=== PATIENT | female | born 1935 | race Caucasian/White ===

== ENCOUNTER 2022-06-10 13:14 | Emergency (ER) | payer MEDICARE, OTHER, SELFPAY ==
[2022-06-10 13:27] VITALS: BP 139/63; PULSE 86; RESP 14; TEMP 36.9; O2SAT 96; BMI 22.5
--- NOTE | 2022-06-10 14:11 | ED_ITS ---
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 Patient notes that she received her COVID shot on WednesdayJune 05. She has had COVID vaccinations in the past without any difficulty but does have many allergies. She notes that 48 hours after receiving that vaccination or on June 07 she began to experience dizzy spells. These are very brief. She states that often times she will be getting up from a sitting or lying position and have a moment of Well 0 and have to sit back down. This passes quickly. She denies any difficulty breathing but this is associated with chest pressure. She denies any pain. Today she has now developed low back pain. She states that on WednesdayJune 08 she actually went to the clinic and was told that her pulse was off. She notes that it was between 82-84 and that is a little fast for her but that it was irregular. She has not had any heart issues or irregularity of her heart rate in the past. She was advised to come out here to the emergency room but states that a previous visit to us was concerning for her and thus she turned around and went home. Unfortunately, the episodes of feeling dizzy have continued up to 7 times in a day. She notes that sometimes they happen for no reason at all and sometimes they are associated with getting up suddenly. She denies any spinning of the room more feels like she is spinning. She notes no history of DVT no issues with urination or stooling. 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 She has no known exposures to COVID or other illnesses. She does overall feels weak. She has n ever passed out. Patient denies any recent falls. Related Data Home Medications Medication Instructions Recorded Confirmed lisinopril 5 mg tablet 5 mg PO DAILY 06/10/22 06/10/22 Review of Systems Status of ROS: Reports: 10 or more systems reviewed and unremarkable except as noted in History and below Const: Reports: fatigue; Denies: fever or chills Eyes: Denies: change in vision or blind spots ENMT: Denies: throat pain or difficulty swallowing Cardio: Reports: chest pain ( Described as pressure); Denies: swelling of feet/ankles or shortness of breath with exertion Resp: Reports: cough ( chronic); Denies: shortness of breath GI: Denies: abdominal pain, nausea, vomiting, diarrhea or difficulty swallowing : Denies: painful urination or urinary frequency Musculo: Reports: back pain ( low back starting today) Neuro: Denies: headache or numbness in extremities Psych: Reports: other ( states that she is very stubborn and does not want to be here.) Endo: Reports: fatigue; Denies: excessive urination or excessive thirst PFSH PFSH Social History Smoking Status: Former smoker How often do you have a drink containing alcohol: 4 or more times a week How many standard drinks containing alcohol do you have on a typical day: 1 or 2 AUDIT-C Alcohol total score: 4 Non-prescribed substance use: denies use Exam Narrative: Exam Narrative: Surely is a very pleasant well-spoken woman in no acute distress. Her EOM is full pupils are equal round reactive. Head is atraumatic normocephalic. Range of motion full. Face is symmetrical. Speech is normal as is mentation Heart with regular rate and rhythm. I do note occasional additional systole Withcompensatory pause. Lungs are clear bilaterally without wheezing. Lower extremities without edema. Abdomen soft nontender. Moving all extremities and coordination is appropriate. TMs bilaterally without evidence of bulging or infection. Pedal pulses intact and are symmetrical Const: Vital Signs, click to edit/add: Vital Signs - 24 hr 06/10/22 13:27 06/10/22 17:00 06/10/22 17:00 Temperature 98.4 F Pulse Rate [Pulse Oximeter] 86 77 69 Pulse Rate [orthos tatic lying Pulse Oximeter] 69 Pulse Rate [orthos tatic standing Pul se Oximeter] 79 Respiratory Rate 14 16 Blood Pressure [Ri ght Upper Arm] 139/63 143/63 H Blood Pressure [or thostatic lying Ri ght Arm] 143/63 H Blood Pressure [or thostatic sitting Right Arm] 151/95 H Blood Pressure [or thostatic standing Right Arm] 140/55 H Pulse Oximetry 96 Oxygen Delivery Me thod Room Air Documenting provider has reviewed patient's vital signs: yes Course Course Hospital Course: At this time would recommend attention to cardiac workup. Patient's description of events do not seem to be neurologically mediated and she certainly has no focal neurological deficits at this time. Would recommend EKG, troponin, CBC, comprehensive panel, CRP, D-dimer, urinalysis as well as a chest x-ray. Patient is receptive to this. She is informed that she will likely be here for at least 3-4 hours. Reevaluation(s) Reevaluation #1: Patient is noted to have a normal CBC and basic panel. Will add orthostatic vital signs at this time. Vital Signs Vital signs: Initial Vital Signs Temperature 98.4 F 06/10/22 13:27 Temperature Source Temporal Artery Scan 06/10/22 13:27 Pulse Rate 86 06/10/22 13:27 Pulse Rhythm 06/10/22 13:27 Respiratory Rate 14 06/10/22 13:27 Blood Pressure 139/63 06/10/22 13:27 Blood Pressure Mean 88 06/10/22 13:27 Blood Pressure Position Sitting 06/10/22 13:27 Pulse Oximetry 96 06/10/22 13:27 Oxygen Delivery Method 06/10/22 13:27 Vital Signs Temperature 98.4 F 06/10/22 13:27 Pulse Rate 86 06/10/22 13:27 Respiratory Rate 14 06/10/22 13:27 Blood Pressure 139/63 06/10/22 13:27 Pulse Oximetry 96 06/10/22 13:27 Oxygen Delivery Method 06/10/22 13:27 Temperature 98.4 F 06/10/22 13:27 Pulse Rate 69 06/10/22 17:00 Respiratory Rate 16 06/10/22 17:00 Blood Pressure 143/63 H 06/10/22 17:00 Pulse Oximetry 96 06/10/22 13:27 Oxygen Delivery Method 06/10/22 13:27 MDM - Dizziness MDM Narrative Medical decision making narrative: 1. Dizziness - No further episodes were noted here in the emergency room. In itially I thought this was perhaps related to frequent PVCs but patient was asymptomatic to them while she was lying down. Orthostatic vital signs were reassuring. No evidence of focal neurological deficits. Patient did not have episodes of dizziness while in the ED or while standing up or so sitting up in the bed. 2. Chest pressure -Patient notes that this has improved. EKG x2 without evid ence of acute ST or T-wave changes. Troponin is negative x2. D-dimer is reassuring and pedal pulses are symmetrical and there is no evidence of mediastinal widening on the chest x-ray and therefore I do not think that this is aortic pathology. Patient's discomfort did not radiate into her back. 3. Hematuria -This is a chronic finding for her. No evidence of UTI. 4. Disposition - patient is discharged home. She is very anxious to go home. We did discuss her reassuring labs, vital signs and exam but I a.m. expressing to her that I am still at a loss for her discomfort. She is of the mind that this is secondary to her recent COVID vaccination. I think this would be unusual given the length of time but certainly would keep an open mind. We do have a COVID/ influenza test pending but patient does not wish to wait for those results. Second EKG and troponin negative for any acute findings. Influenza and COVID are negative. Medical Records Attestation: I reviewed the patient's medical records. Lab Data Attestation: I reviewed the patient's lab results. Labs: Lab Results 06/10/22 06/10/22 06/10/22 Range/Units 15:07 15:07 15:07 WBC 7.85 (4.50-11.00) K/uL RBC 4.30 (4.00-5.20) m/uL Hgb 13.1 (12.0-16.0) gm/dL Hct 38.4 (33.0-51.0) % MCV 89 (80-100) fL MCH 31 (26-34) pg MCHC 34 (32-36) gm/dL Plt Count 224 (140-440) K/uL Neut % (Auto) 66.6 (42.0-72.0) % Lymph % (Auto) 25.2 (20-44) % [place] % (Auto) 6.5 (0.0-11.0) % Eos % (Auto) 1.1 (0.0-7.0) % Baso % (Auto) 0.3 (0.0-3.0) % Neut # (Auto) 5.23 (1.7-7.0) K/uL Lymph # (Auto) 1.98 (0.90-2.90) K/uL [place] # (Auto) 0.51 (0.00-0.90) K/UL Eos # (Auto) 0.09 (0.00-0.50) K/uL Baso # (Auto) 0.02 (0.00-0.30) K/uL Abs Immat Gran (auto) 0.02 (0.00-0.30) K/uL Imm/Tot Granulo (auto) 0.3 % D-Dimer Quant (PE/DVT) 0.40 (0.00-0.50) ug/ml Sodium 138 (135-149) mmol/L Potassium 4.8 (3.6-5.1) mmol/L Chloride 103 (96-114) mmol/L Carbon Dioxide 27 (20-32) mmol/L BUN 20 (7-30) mg/dL Creatinine 0.7 (0.5-1.5) mg/dL Estimated Creat Clear 37.01 Estimated GFR 85 ml/min Glucose 104 (60-115) mg/dL Calcium 9.8 (8.4-10.6) mg/dL Magnesium (1.5-2.6) mg/dL Total Bilirubin 0.2 (0.1-1.5) mg/dL AST 21 (12-35) U/L ALT 10 (4-35) U/L Alkaline Phosphatase 67 (40-150) U/L Total Creatine Kinase 59 (41-117) U/L C-Reactive Protein < 0.5 L (0.5-1.0) mg/dL Total Protein 6.9 (6.0-8.3) g/dL Albumin 4.4 (3.3-5.0) g/dL Urine Color (Yellow) Urine Appearance (Clear) Urine pH (5.0-8.5) Ur Specific [place] (1.000-1.030) Urine Protein (Negative) Urine Glucose (UA) (Negative) Urine Ketones (Negative) Urine Blood (Negative) Urine Nitrite (Negative) Urine Bilirubin (Negative) Urine Urobilinogen (0.2-1.0) Ur Leukocyte Esterase (Negative) Urine RBC (0-2) Urine WBC (0-5) Ur Squamous Epith Cells (None-Few) Urine Bacteria (None) SARS-CoV-2 (PCR) (Negative) Influenza Type A (PCR) (Negative) Influenza Type B (PCR) (Negative) POC Troponin I (0.01-0.04) ng/ml 06/10/22 06/10/22 06/10/22 Range/Units 15:07 15:23 16:40 WBC (4.50-11.00) K/uL RBC (4.00-5.20) m/uL Hgb (12.0-16.0) gm/dL Hct (33.0-51.0) % MCV (80-100) fL MCH (26-34) pg MCHC (32-36) gm/dL Plt Count (140-440) K/uL Neut % (Auto) (42.0-72.0) % Lymph % (Auto) (20-44) % [place] % (Auto) (0.0-11.0) % Eos % (Auto) (0.0-7.0) % Baso % (Auto) (0.0-3.0) % Neut # (Auto) (1.7-7.0) K/uL Lymph # (Auto) (0.90-2.90) K/uL [place] # (Auto) (0.00-0.90) K/UL Eos # (Auto) (0.00-0.50) K/uL Baso # (Auto) (0.00-0.30) K/uL Abs Immat Gran (auto) (0.00-0.30) K/uL Imm/Tot Granulo (auto) % D-Dimer Quant (PE/DVT) (0.00-0.50) ug/ml Sodium (135-149) mmol/L Potassium (3.6-5.1) mmol/L Chloride (96-114) mmol/L Carbon Dioxide (20-32) mmol/L BUN (7-30) mg/dL Creatinine (0.5-1.5) mg/dL Estimated Creat Clear Estimated GFR ml/min Glucose (60-115) mg/dL Calcium (8.4-10.6) mg/dL Magnesium 2.3 (1.5-2.6) mg/dL Total Bilirubin (0.1-1.5) mg/dL AST (12-35) U/L ALT (4-35) U/L Alkaline Phosphatase (40-150) U/L Total Creatine Kinase (41-117) U/L C-Reactive Protein (0.5-1.0) mg/dL Total Protein (6.0-8.3) g/dL Albumin (3.3-5.0) g/dL Urine Color Yellow (Yellow) Urine Appearance Clear (Clear) Urine pH 6.0 (5.0-8.5) Ur Specific [place] 1.025 (1.000-1.030) Urine Protein Negative (Negative) Urine Glucose (UA) Negative (Negative) Urine Ketones Negative (Negative) Urine Blood 2+ A (Negative) Urine Nitrite Negative (Negative) Urine Bilirubin Negative (Negative) Urine Urobilinogen 0.2 (0.2-1.0) Ur Leukocyte Esterase Negative (Negative) Urine RBC 5-10 A (0-2) Urine WBC 0-2 (0-5) Ur Squamous Epith Cells None (None-Few) Urine Bacteria None (None) SARS-CoV-2 (PCR) (Negative) Influenza Type A (PCR) (Negative) Influenza Type B (PCR) (Negative) POC Troponin I 0.00 L (0.01-0.04) ng/ml 06/10/22 Range/Units 17:04 WBC (4.50-11.00) K/uL RBC (4.00-5.20) m/uL Hgb (12.0-16.0) gm/dL Hct (33.0-51.0) % MCV (80-100) fL MCH (26-34) pg MCHC (32-36) gm/dL Plt Count (140-440) K/uL Neut % (Auto) (42.0-72.0) % Lymph % (Auto) (20-44) % [place] % (Auto) (0.0-11.0) % Eos % (Auto) (0.0-7.0) % Baso % (Auto) (0.0-3.0) % Neut # (Auto) (1.7-7.0) K/uL Lymph # (Auto) (0.90-2.90) K/uL [place] # (Auto) (0.00-0.90) K/UL Eos # (Auto) (0.00-0.50) K/uL Baso # (Auto) (0.00-0.30) K/uL Abs Immat Gran (auto) (0.00-0.30) K/uL Imm/Tot Granulo (auto) % D-Dimer Quant (PE/DVT) (0.00-0.50) ug/ml Sodium (135-149) mmol/L Potassium (3.6-5.1) mmol/L Chloride (96-114) mmol/L Carbon Dioxide (20-32) mmol/L BUN (7-30) mg/dL Creatinine (0.5-1.5) mg/dL Estimated Creat Clear Estimated GFR ml/min Glucose (60-115) mg/dL Calcium (8.4-10.6) mg/dL Magnesium (1.5-2.6) mg/dL Total Bilirubin (0.1-1.5) mg/dL AST (12-35) U/L ALT (4-35) U/L Alkaline Phosphatase (40-150) U/L Total Creatine Kinase (41-117) U/L C-Reactive Protein (0.5-1.0) mg/dL Total Protein (6.0-8.3) g/dL Albumin (3.3-5.0) g/dL Urine Color (Yellow) Urine Appearance (Clear) Urine pH (5.0-8.5) Ur Specific [place] (1.000-1.030) Urine Protein (Negative) Urine Glucose (UA) (Negative) Urine Ketones (Negative) Urine Blood (Negative) Urine Nitrite (Negative) Urine Bilirubin (Negative) Urine Urobilinogen (0.2-1.0) Ur Leukocyte Esterase (Negative) Urine RBC (0-2) Urine WBC (0-5) Ur Squamous Epith Cells (None-Few) Urine Bacteria (None) SARS-CoV-2 (PCR) Negative SARS-CoV-2 (Negative) Influenza Type A (PCR) Negative PCR FLU A (Negative) Influenza Type B (PCR) Negative PCR FLU B (Negative) POC Troponin I (0.01-0.04) ng/ml Imaging Data Chest x-ray: Attestation: I have reviewed the pertinent imaging results. My impression: no evidence of infiltrates or widened mediastinum Radiologist's impression: no acute findings ECG Data Attestation: I personally reviewed and interpreted this ECG as follows: ECG interpretation date: 06/10/22 Prior ECG tracings: available for review Interpretation: Compared with previous no changes. EKG by my read shows sinus rhythm. Occasional PVC. No evidence of acute ST or T-wave changes. EKG 2. By my read shows sinus rhythm at a rate of 70. No acute ST or T-wave changes. Also of note no evidence of PVC. Discharge Plan Discharge Clinical Impression: Episode of dizziness, Frequent unifocal PVCs, Chest pressure Patient Disposition: Home, Self-Care Condition: Improved Additional Instructions: rest and light activity. Continue to monitor and avoid any situation where an episode of dizziness could be very dangerous such as resulting in a fall. Return to the emergency room for increasing chest pain, shortness of breath or onset of new symptoms. Prescriptions: No Action lisinopril 5 mg tablet 5 mg PO DAILY Label Comments: TAKE ONE TABLET BY MOUTH ONE TIME DAILY Follow Up/Referrals: Lillian Hanson DO [Primary Care Provider] - Stand Alone Forms: [facility] Info Instructions
--- NOTE | 2022-06-10 14:51 | CRLHL7_ITS ---
For Patients: As a result of the Century Cures Act, medical imaging exams and procedure reports are released immediately into your electronic medical record. You may view this report before your referring provider. If you have questions, please contact your health care provider. Indication: Chest pressure Comparison: Two-view chest May 01, 2019 Technique: PA and lateral views of the chest Findings: There is hyperinflation and chronic interstitial change without dense consolidation, effusion or pneumothorax. The cardiomediastinal silhouette is within normal limits. The bony thorax is grossly intact. Impression: Hyperinflation and chronic interstitial change without dense consolidation. Dictated by Eduardo Andrew MD @ 06/10/2022 3:47:18 PM (Electronically Signed)
[2022-06-10 15:42] LABS: Basophils Percent Auto 0.3 % (0.0-3.0); Eosinophils Percent Auto 1.1 % (0.0-7.0); Hematocrit 38.4 % (33.0-51.0); Hemoglobin* 13.1 gm/dL (12.0-16.0); Immature Granulocytes Pct Auto 0.3 %; Lymphocytes Absolute Auto 1.98 K/uL (0.90-2.90); Lymphocytes Percent Auto 25.2 % (20-44); Mean Corpuscular HGB Conc 34 gm/dL (32-36); Mean Corpuscular Hemoglobin 31 pg (26-34); Mean Corpuscular Volume 89 fL (80-100); Monocytes Absolute Auto 0.51 K/UL (0.00-0.90); Monocytes Percent Auto 6.5 % (0.0-11.0); Neutrophils Absolute Auto 5.23 K/uL (1.7-7.0); Neutrophils Percent Auto 66.6 % (42.0-72.0); Platelet Count* 224 K/uL (140-440); White Blood Count* 7.85 K/uL (4.50-11.00)
[2022-06-10 15:43] LABS: Basophils Absolute Auto 0.02 K/uL (0.00-0.30); Eosinophils Absolute Auto 0.09 K/uL (0.00-0.50); Immature Granulocytes Abs Auto 0.02 K/uL (0.00-0.30); Slide Review Reflex No
[2022-06-10 16:04] LABS: Appearance Urine Clear (Clear); Bilirubin Urine Negative (Negative); Blood Urine 2+ (Negative); Color Urine Yellow (Yellow); Glucose Urine Negative (Negative); Ketones Urine Negative (Negative); Specific Gravity Urine 1.025 (1.000-1.030)
[2022-06-10 16:05] LABS: Leukocyte Esterase Urine Negative (Negative); Nitrite Urine Negative (Negative); Protein Urine Negative (Negative); Urobilinogen Urine 0.2 (0.2-1.0); WBC Urine 0-2 (0-5)
[2022-06-10 16:14] LABS: Blood Urea Nitrogen* 20 mg/dL (7-30); Calcium* 9.8 mg/dL (8.4-10.6); Carbon Dioxide* 27 mmol/L (20-32); Chloride* 103 mmol/L (96-114); Creatinine* 0.7 mg/dL (0.5-1.5); Est. Creatinine Clearance* 37.01; Estimated Glomerular Filt Rate 85 ml/min; Glucose* 104 mg/dL (60-115); Potassium* 4.8 mmol/L (3.6-5.1)
[2022-06-10 16:15] LABS: Alanine Aminotransferase* 10 U/L (4-35); Albumin* 4.4 g/dL (3.3-5.0); Alkaline Phosphatase* 67 U/L (40-150); Aspartate Amino Transferase* 21 U/L (12-35); Bilirubin Total* 0.2 mg/dL (0.1-1.5); C Reactive Protein* < 0.5 mg/dL (0.5-1.0); Creatine Kinase* 59 U/L (41-117); Total Protein* 6.9 g/dL (6.0-8.3)
[2022-06-10 16:18] LABS: Sodium* 138 mmol/L (135-149)
[2022-06-10 16:33] LABS: Magnesium* 2.3 mg/dL (1.5-2.6)
[2022-06-10 17:00] VITALS: BP 140/55; BP 143/63; BP 151/95; PULSE 69; PULSE 77; PULSE 79; RESP 16
[2022-06-10 18:15] LABS: PCR FLU A Negative PCR FLU A (Negative); PCR FLU B Negative PCR FLU B (Negative); SARS PCR* Negative SARS-CoV-2 (Negative)
== END 2022-06-10 18:25 | disposition home or self-care (01) ==
PROVIDERS: Emergency Provider Family Medicine; PCP Family Medicine
DX: R42 Dizziness and giddiness (principal); I49.3 Ventricular premature depolarization; R07.89 Other chest pain
CPT/HCPCS: 36415; 71046; 80053; 81001; 82550; 83735; 85025; 85379; 86140; 87631; 93005; 99285